=== PATIENT | male | born 1995 | race Caucasian/White ===

== ENCOUNTER 2019-12-09 12:48 | Emergency (ER) | payer MEDICAID ==
[~2019-12-09] VITALS: Ht 165.1 cm; Wt 58.0 kg
[2019-12-09 13:02] VITALS: BP 135/79
== END 2019-12-09 15:07 | disposition home or self-care (01) ==
LOC: ER 12:48
DX: E86.0 Dehydration (principal)
CPT/HCPCS: 99281

== ENCOUNTER 2019-12-28 15:16 | Emergency (ER) | payer MEDICAID ==
[~2019-12-28] VITALS: Ht 165.1 cm; Wt 59.0 kg
[2019-12-28 19:08] VITALS: BP 147/64
== END 2019-12-28 19:09 | disposition home or self-care (01) ==
LOC: ER 15:16
DX: R42 Dizziness and giddiness (principal)
CPT/HCPCS: 82962; 99281; 99282

== ENCOUNTER 2020-12-13 10:23 | Emergency (ER) | payer MEDICAID ==
[~2020-12-13] VITALS: Ht 165.1 cm; Wt 61.0 kg
[2020-12-13 10:35] VITALS: BP 125/79
== END 2020-12-13 10:59 | disposition home or self-care (01) ==
LOC: ER 10:23
DX: K29.00 Acute gastritis without bleeding (principal)
CPT/HCPCS: 99281

== ENCOUNTER 2021-01-09 19:28 | Emergency (ER) | payer MEDICAID ==
[~2021-01-09] VITALS: Ht 165.1 cm; Wt 61.7 kg
[2021-01-10] MEDS ORDERED: MECLIZINE 25MG TABLET PO ONE (00:30)
[2021-01-10 01:37] LABS: CLARITY URINE CLOUDY (CLEAR); COLOR URINE YELLOW (YELLOW); KETONES URINE NEGATIVE (NEGATIVE); LEUKOCYTE ESTERASE URINE NEGATIVE (NEGATIVE); NITRITE URINE NEGATIVE (NEGATIVE); OCCULT BLOOD URINE NEGATIVE (NEGATIVE); PROTEIN URINE NEGATIVE (NEGATIVE); SPECIFIC GRAVITY URINE 1.025 (1.005-1.030)
[2021-01-10 02:15] VITALS: BP 108/69
== END 2021-01-10 02:19 | disposition home or self-care (01) ==
LOC: ER 19:28
DX: E86.0 Dehydration (principal)
CPT/HCPCS: 81003; 82962; 93005; 99284; J8597

== ENCOUNTER 2022-01-17 18:25 | Emergency (ER) | payer MEDICAID ==
[~2022-01-17] VITALS: Ht 165.1 cm; Wt 61.0 kg
[2022-01-17] MEDS ORDERED: TETANUS, DIPHTHERIA, PERTUSSIS VAC/PF 0.5ML (>10YR OLD) IM ONE (20:15)
[2022-01-17] MEDS ORDERED: ACETAMINOPHEN 325MG TABLET PO ONE (21:00)
[2022-01-17] MEDS ORDERED: BACITRACIN/POLYMYXIN B SULFATE OINT 15GM TOP ONE (21:00)
[2022-01-17] MEDS ORDERED: IBUPROFEN 400MG TABLET PO ONE (21:00)
[2022-01-17 21:11] VITALS: BP 136/84
[2022-01-17] MEDS ORDERED: TOPUD PO (21:31)
[2022-01-17] MEDS ORDERED: IBUP-2028 MT (21:31)
== END 2022-01-17 21:50 | disposition home or self-care (01) ==
LOC: ER 18:25
DX: S81.012A Laceration without foreign body, left knee, initial encounter (principal); V03.19XA Pedestrian with other conveyance injured in collision with car, pick-up truck or van in traffic accident, initial encounter; Y93.55 Activity, bike riding; Y92.410 Unspecified street and highway as the place of occurrence of the external cause
CPT/HCPCS: 12004; 73560; 90715; 99283

== ENCOUNTER 2022-02-01 09:50 | Emergency (ER) | payer MEDICAID ==
[~2022-02-01] VITALS: Ht 165.1 cm; Wt 61.0 kg
[~2022-02-01 09:50] MED LIST: IBUP-2028 MT; TOPUD PO
[2022-02-01] MEDS ORDERED: CEPH500C2 MT (12:13)
[2022-02-01] MEDS ORDERED: BO1 TP (12:13)
[2022-02-01 12:37] VITALS: BP 122/62
== END 2022-02-01 12:38 | disposition home or self-care (01) ==
LOC: ER 09:50
DX: S81.012D Laceration without foreign body, left knee, subsequent encounter (principal); X58.XXXD Exposure to other specified factors, subsequent encounter; Z79.899 Other long term (current) drug therapy
CPT/HCPCS: 99283